=== PATIENT | male | born 1950 | race Caucasian/White ===

== ENCOUNTER 2021-04-22 19:26 | Emergency (ER) | payer BC ==
--- NOTE | 2021-04-22 20:12 | EDM.PDOC ---
ED HPI GENERAL MEDICAL PROBLEM - General Chief Complaint: Skin Complaint Stated Complaint: SORE ON RT LEG Time Seen by Provider: 04/22/21 19:41 Source of Information: Reports: Patient History Limitations: Reports: No Limitations - History of Present Illness INITIAL COMMENTS - FREE TEXT/NARRATIVE: 70-year-old male presents the emergency department with complaints of a "pimple" that started a few days ago. The patient states that that he had a pimple on his right jones so he squeezed it and did manage to get a white pit out however the course of the past 2 days it has grown in size. Patient denies any fever, chills, nausea, vomiting, or diarrhea. He denies any respiratory complaints or urinary symptoms. Patient states that he has been washing the wound and applying Neosporin and then a bandage to the area to treat it however it has gotten slightly larger in size. He denies any history of staph infection such as MRSA in the past. - Related Data Allergies Allergy/AdvReac Type Severity Reaction Status Date / Time No Known Allergies Allergy Verified 04/22/21 19:47 Home Meds: Home Meds cephALEXin [Keflex] 500 mg PO QID #40 cap 04/22/21 [Rx] Social & Family History - Tobacco Use Tobacco Use Status *Q: Never Tobacco User Second Hand Smoke Exposure: No - Recreational Drug Use Recreational Drug Use: No ED ROS GENERAL - Review of Systems Review Of Systems: Comprehensive ROS is negative, except as noted in HPI. ED EXAM, SKIN/RASH Exam: See Below Exam Limited By: No Limitations General Appearance: Alert, WD/WN, No Apparent Distress Ears: Normal External Exam, Hearing Grossly Normal Nose: Normal Inspection Throat/Mouth: Normal Inspection, Normal Lips, Normal Voice, No Airway Compromise Head: Atraumatic Neck: Normal Inspection, Supple Respiratory/Chest: No Respiratory Distress, No Accessory Muscle Use Cardiovascular: Normal Peripheral Pulses, Regular Rate, Rhythm GI/Abdominal: No Distention (Male) Exam: Deferred Rectal (Males) Exam: Deferred Back Exam: Normal Inspection Extremities: Normal Range of Motion, Non-Tender, No Pedal Edema, Normal Capillary Refill. No: Normal Inspection (Cellulitis noted to right mid jones scabbed abraded area 1 cm x 2 cm with erythema surrounding) Neurological: Alert, Oriented, Normal Cognition Psychiatric: Normal Affect, Normal Mood Skin: Warm, Dry, Normal Color, No Rash. No: Intact (Cellulitis noted to right mid jones scabbed abraded area 1 cm x 2 cm with erythema surrounding) Location, Skin: Lower Extremity, Right Associated features: Inflammation, Crusting Lymphatic: No Adenopathy Course - Vital Signs Text/Narrative:: Stated above patient with cellulitis noted to his right jones. This started a couple of days ago and he did squeeze the area and got a white pit out of it however he states it has grown in size. There is an area of scabbed abrasion noted to the right middle jones. The area is 1 cm x 2 cm. There is erythema noted surrounding the area of approximately half centimeter. We will treat the patient for cellulitis. Treatment will be Keflex 500 mg 4 times daily for 10 days. He will be instructed to wash the area twice daily with mild soap and apply a thin film of bacitracin and then cover it with a bandage. Last Recorded V/S: Last Vital Signs Temp 97 F 04/22/21 19:39 Pulse 95 04/22/21 19:39 Resp 16 04/22/21 19:39 BP 181/116 H 04/22/21 19:39 Pulse Ox 94 L 04/22/21 19:39 Departure - Departure Time of Disposition: 20:08 Disposition: Home, Self-Care 01 Condition: Good Clinical Impression: Cellulitis Qualifiers: Site of cellulitis: extremity Site of cellulitis of extremity: lower extremity Laterality: right Qualified Code(s): L03.115 - Cellulitis of right lower limb - Discharge Information Prescriptions: cephALEXin [Keflex] 500 mg PO QID #40 cap Instructions: Cellulitis, Adult, [id number] Referrals: PCP,None [Primary Care Provider] - Forms: ED Department Discharge Additional Instructions: You were seen in the emergency department today with an ulceration noted to your right jones that you states started out as what looked like a pimple. It does appear to be infected. Treatment for this is an antibiotic called Keflex. You will need to take 4 tabs daily for the next 10 days. Be sure to take the medication until its all gone to be sure to clear the infection. Keep in mind that it may take 48 to 72 hours to notice a difference. Recommend washing the area twice daily with mild soap and patting dry. Then applying a thin film of bacitracin to the area and covering with a bandage. Should you develop fever, chills, nausea, vomiting or diarrhea, return to the ER for reevaluation. Sepsis Event Note (ED) - Evaluation Sepsis Screening Result: No Definite Risk - Focused Exam Vital Signs: Vital Signs Temp Pulse Resp BP Pulse Ox 04/22/21 19:39 97 F 95 16 181/116 H 94 L
== END 2021-04-22 20:18 | disposition home or self-care (01) ==
LOC: JD.ED 19:26
DX: L03.115 Cellulitis of right lower limb (principal)
CPT/HCPCS: 99282; 99283